=== PATIENT | male | born 1945 | race African-American/Black ===

== ENCOUNTER 2016-09-10 07:12 | Emergency (ER) | payer MEDICARE, BC ==
[~2016-09-10] VITALS: Ht 180.3 cm; Wt 61.2 kg
[2016-09-10 07:29] VITALS: BP 151/88
[2016-09-10] MEDS ORDERED: AZITHROMYCIN250 MG ORAL (07:34)
--- NOTE | 2016-09-10 07:38 | Emergency Room Report ---
History of Present Illness General Chief Complaint: Upper Respiratory Illness Source: Patient Present Illness HPI Patient presents with complaints of coughing congestion Ongoing for the past several days Patient flew out here from [place] last week At that time had some sinus congestion Started doing better with that He attended a basketball game and then very cold stadium 2 days ago and feels after that he began coughing more And with increased chest congestion Denies any fevers denies any neck pain or photophobia denies any vomiting or diarrhea denies any rash Allergies: Coded Allergies: No Known Allergies (Unverified , 09/10/16) Patient History Past Medical History: see triage record Pertinent Family History: none Reviewed Nursing Documentation: PMH: Agreed, PSxH: Agreed Nursing Documentation-PMH Past Medical History: No History, Except For Review of Systems All Other Systems: negative except mentioned in HPI Physical Exam Vital Signs Date Time Temp Pulse Resp B/P Pulse Ox O2 Delivery O2 Flow Rate FiO2 09/10/16 07:21 98.8 99 18 151/88 98 Room Air Sp02 EP Interpretation: reviewed, normal General Appearance: well appearing, no apparent distress Head: normocephalic, atraumatic Eyes: right eye other - Previous right-sided glaucoma with surgery, bilateral eye EOMI, bilateral eye PERRL ENT: hearing grossly normal, normal pharynx, TMs + canals normal, uvula midline Neck: full range of motion, supple, no meningismus, no bony tend Respiratory: lungs clear, normal breath sounds, no rhonchi, no respiratory distress, no retraction, no accessory muscle use Cardiovascular #1: normal peripheral pulses, regular rate, rhythm, no edema, no gallop, no JVD, no murmur Gastrointestinal: normal bowel sounds, non tender, soft, no mass, no organomegaly, non-distended, no guarding, no hernia, no pulsatile mass, no rebound Musculoskeletal: normal inspection Neurologic: oriented x3, responsive, 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, motor strength/ tone normal, sensory intact Psychiatric: mood/affect normal Skin: normal color, no rash, warm/dry, palpation normal Lymphatic: normal inspection, no adenopathy Medical Decision Making Diagnostic Impression: Primary Impression: bronchitis ER Course Patient's lung sounds are appropriate breathing is also appropriate no signs of any distress Oxygenation is good Patient appears to have findings in line with likely bronchitis And the patient is stable for initial conservative outpatient trial Last Vital Signs Date Time Temp Pulse Resp B/P Pulse Ox O2 Delivery O2 Flow Rate FiO2 09/10/16 07:29 99 18 Room Air 09/10/16 07:29 98.8 151/88 98 Status: unchanged Disposition: HOME, SELF-CARE Condition: Stable Patient Instructions: Acute Bronchitis Additional Instructions: Patient is provided with the discharge instructions notified to follow up with primary doctor in the next 2-3 days otherwise return to the er with any worsening symptoms. JANN WHITTINGTON D.O. Sep 10, 2016 07:38
[2016-09-10 07:40] VITALS: BP 151/88
== END 2016-09-10 07:40 | disposition home or self-care (01) ==
LOC: EMR 07:39
DX: J40 Bronchitis, not specified as acute or chronic (principal)
CPT/HCPCS: 99282